=== PATIENT | female | born 1965 | race Caucasian/White ===

== ENCOUNTER 2017-08-07 12:30 | Emergency (ER) | payer SELFPAY | END 2017-08-07 17:21 | disposition home or self-care (01) | LOC: D.ER 12:30 | DX: L02.612 Cutaneous abscess of left foot (principal) ==

== ENCOUNTER → 2017-08-14 17:25 | Emergency (ER) | payer SELFPAY | END | disposition home or self-care (01) | LOC: D.ER 17:25 | DX: S91.312D Laceration without foreign body, left foot, subsequent encounter (principal); X58.XXXD Exposure to other specified factors, subsequent encounter; Y92.029 Unspecified place in mobile home as the place of occurrence of the external cause; Z48.02 Encounter for removal of sutures ==

== ENCOUNTER → 2018-01-12 09:57 | Outpatient (CLI) | payer SELFPAY | END | disposition home or self-care (01) | LOC: D.CT 09:57 | DX: R19.02 Left upper quadrant abdominal swelling, mass and lump (principal) ==

== ENCOUNTER → 2018-09-06 16:03 | Outpatient (CLI) | payer OTHER | END | disposition home or self-care (01) | LOC: D.RAD 16:03 | DX: J01.90 Acute sinusitis, unspecified (principal) ==

== ENCOUNTER → 2018-09-25 15:31 | Outpatient (CLI) | payer OTHER | END | disposition home or self-care (01) | LOC: D.LABREF 15:31 | DX: M17.11 Unilateral primary osteoarthritis, right knee (principal) ==

== ENCOUNTER → 2018-09-26 09:25 | Outpatient (CLI) | payer OTHER ==
[~2018-09-26 09:25] MED LIST: LISINOPRIL2.5 MG PO; METFORMIN HCL500 M1 PO; MOBIC7.5 MG PO; TIROSINT13 MCG PO; ZOCOR20 MG PO; ZOLOFT50 MG PO
== END | disposition home or self-care (01) ==
LOC: D.LABREF 09:25
DX: M17.11 Unilateral primary osteoarthritis, right knee (principal); Z11.8 Encounter for screening for other infectious and parasitic diseases

== ENCOUNTER 2018-10-11 10:00 | Inpatient (IN) | payer OTHER ==
[~2018-10-11] VITALS: Ht 157.5 cm; Wt 90.7 kg
[2018-10-11 12:15] LABS: BASOPHILS 0.5 % (0-2); HEMATOCRIT 41.3 % (36.0-48.0); HEMOGLOBIN 14.2 g/dL (12-16); IMMATURE GRANULOCYTES 0.4 % (0-5); LYMPHOCYTES 29.7 % (15-50); MCH 32.3 pg (26.0-34.0); MCHC 34.4 g/dL (31.0-37.0); MCV 94.1 fL (80.0-100.0); MEAN PLATELET VOLUME 9.3 fL (7.4-10.4); MONOCYTES 6.9 % (2-11); NEUTROPHILS 60.5 % (40-80); PLATELET COUNT 208 10x3/uL (130-400); RBC 4.39 10x6/uL (4.00-5.40); RDW 12.7 % (11.5-14.5); WBC 7.9 10x3/uL (4.8-10.8)
[2018-10-11 12:23] LABS: APTT 28.2 SECONDS (22.8-39.4); INR 1.02 (0.85-1.17); PROTIME 12.9 SECONDS (11.6-15.0)
[2018-10-11 12:24] LABS: CALC OSMOLALITY 279 mosm/kg (275-300); CALCIUM 9.3 mg/dL (8.5-10.1); CARBON DIOXIDE 28.3 mmol/L (21.0-32.0); CHLORIDE - SERUM 102 mmol/L (98-107); CREATININE - SERUM 0.8 mg/dL (0.6-1.3); GLUCOSE 187 mg/dL (74-106); POTASSIUM - SERUM 4.2 mmol/L (3.5-5.1); SODIUM 137 mmol/L (136-145); UREA NITROGEN 16 mg/dL (7-18); eGFR NON AFRICAN AMERICAN 79 mL/min (90-120)
[2018-10-11 12:51] LABS: APPEARANCE CLEAR (CLEAR); BILIRUBIN NEGATIVE (NEGATIVE); COLOR YELLOW (YELLOW); GLUCOSE NEGATIVE (NEGATIVE); KETONE NEGATIVE (NEGATIVE); NITRITE NEGATIVE (NEGATIVE); PROTEIN NEGATIVE (NEGATIVE); SPECIFIC GRAVITY 1.015 (1.005-1.020); UROBILINOGEN NORMAL (NORMAL)
[2018-10-11 12:52] LABS: BACTERIA FEW /hpf (NONE SEEN); EPITHELIAL CELLS 0-5 /hpf (0-5); MUCUS <1+ /lpf (NONE SEEN)
[2018-10-17 08:04] VITALS: BP 116/71; BMI 36.6
[2018-10-17 12:47] VITALS: BP 113/70
[2018-10-17 14:21] VITALS: BMI 36.6
--- NOTE | 2018-10-17 15:51 | OP ---
PATIENT NAME: VERONICA IBARRA MEDICAL RECORD: [id number] :65 LOCATION:D.[id number] ADMISSION DATE:10/17/18 SURGEON: RYAN RAM DO DATE OF OPERATION: 10/17/2018 PRIMARY CARE: Aria Armstrong PROCEDURE PERFORMED: Right total knee arthroplasty using the Biomet Vanguard knee 62.5 right porous femur, 71 cruciate tibia, 31 three-peg thin patella, and a 12 E poly anterior stabilized bearing. PREOPERATIVE DIAGNOSIS: Right knee end-stage osteoarthritis. POSTOPERATIVE DIAGNOSIS: Right knee end-stage osteoarthritis. INDICATIONS: Ms. Ibarra is a 53-year-old female, who presented to my office sometime ago. She had tried all conservative measures of treating her osteoarthritis including injections and exercise, weight loss to no avail. She was tired of dealing with the pain and was affecting her activities of daily living and she wanted to have something done. I informed her of the risks and benefits of a total knee including infection, bleeding, damage to nerve and vessel, need for the surgery, revision surgery. She was okay with those risks, blood clots and even and signed the consent. SURGEON: Ryan Ram DO DESCRIPTION OF PROCEDURE: The patient was given a block by anesthesia in the preoperative area and taken to the operative suite, laid in the supine position. The right lower extremity was prepped and draped in sterile fashion. She was given 2 grams of Ancef and 80 mg of gentamicin preoperatively and then a time-out was performed. Everyone was agreement with the correct side, site, patient and procedure. The right lower extremity was then prepped and draped and the incision began over the midline, first marked out and then covered with an Ioban. A #10 blade scalpel was used to make the anterior midline incision. Careful dissection was made down to the capsule coagulating all vessels with the Aquamantys and a medial parapatellar approach was used with a fresh 10 blade through the capsule. The removal of the fat pad was done at that time. Patella was everted and milled down to fit the prosthesis. The knee was then flexed up and the intramedullary canal was entered with a drill and the distal femur guide was cut and the distal femur was cut and then the tibia was measured and cut and then the knee was brought into extension. Lamina filler spreader was used and the menisci were removed and coagulation was done at that time of the medial and lateral genicular arteries with the Aquamantys. The extension block was then brought in and fit well. The knee was then flexed up and the femur was measured to be a 62.5. A 4-in-1 cutting block was then put into place and the femur was cut. The trial was put on and then the patella tray was floated in and ranged and marked the rotation. The patella was then drilled for the implant and then tray and the tibial poly was removed and the lug holes were drilled through the trial of the femur. This was all removed. The knee was thoroughly irrigated. The tibia was then exposed and measured to be 71 tray. This was drilled and punched and extra holes were punched with a special tool and then the cement was mixed and that was put on the tibial implant as well as on the tibia. It was impacted into place. Excess cement was removed with a Chester. The femur was put on, press-fit and impacted into place and a 10 poly was put in between. The knee was brought to an extension and pressure was put on the femur in order to OPERATIVE REPORT [id number] VERONICA IBARRA push the tibial tray down into place while the cement dried. The patella was then exposed, irrigated and cement was put into the tibial peg holes and the screws were used to hold the patella into place and excess cement was removed from it. This was held and the knee was irrigated while the cement dried. Once the cement was dried. I trialed a 10 which seemed to be a little loose and then 12 poly fit very well. I decided to do an anterior stabilized bearing. This was put into place and then locked into place. Had good range of motion and good stability in flexion and extension with medial and lateral stresses. The knee was then thoroughly irrigated and the Surgicel beads were placed into the gutters of the knee as well as the vancomycin and tobramycin powder. Capsule was then closed with #2 Ethibond in tjgges-ef-najaw fashion and then the capsule irrigated, more antibiotic powder was placed on top of it. The skin was closed with 2-0 Vicryl in inverted interrupted fashion and a ZipLine was placed on the knee. Adaptic, 4 x 4s, ABD, Webril, Tomás wrap, and HOMER hose were placed on to the knee, and the patient was awakened and taken to recovery in stable condition. Blood loss approximately 150 mL. COMPLICATIONS: None. TRANSINT:[id number] Voice Confirmation ID: [id number] DOCUMENT ID: [id number] RYAN RAM DO at 1551 CC: ARIA ARMSTRONG [id number] DICTATION DATE: 10/17/18 1201 CANNED FOOD RECONDITIONING INSPECTOR: 10/17/18 1311 ADM IN [place] [address] [place] [address]
[2018-10-17 19:00] VITALS: BP 117/62
[2018-10-18 01:26] VITALS: BP 114/63
[2018-10-18 05:01] VITALS: BP 114/62
[2018-10-18 05:02] LABS: BASOPHILS 0.1 % (0-2); EOSINOPHILS 0 % (0-7); HEMATOCRIT 35.1 % (36.0-48.0); HEMOGLOBIN 11.8 g/dL (12-16); IMMATURE GRANULOCYTES 0.4 % (0-5); LYMPHOCYTES 11.2 % (15-50); MCH 31.9 pg (26.0-34.0); MCHC 33.6 g/dL (31.0-37.0); MCV 94.9 fL (80.0-100.0); MEAN PLATELET VOLUME 9.5 fL (7.4-10.4); MONOCYTES 7.2 % (2-11); NEUTROPHILS 81.1 % (40-80); PLATELET COUNT 228 10x3/uL (130-400); RDW 12.9 % (11.5-14.5); WBC 13.4 10x3/uL (4.8-10.8)
[2018-10-18 05:23] LABS: ALBUMIN 3.2 g/dL (3.4-5.0); ANION GAP 14.2 mmol/L (8-16); BILIRUBIN - TOTAL 0.28 mg/dL (0.2-1.3); CALCIUM 8.5 mg/dL (8.5-10.1); CREATININE - SERUM 0.9 mg/dL (0.6-1.3); POTASSIUM - SERUM 4.2 mmol/L (3.5-5.1); PROTEIN - SERUM 6.7 g/dL (6.4-8.2)
[2018-10-18 08:35] VITALS: BP 102/51
[2018-10-18 12:00] VITALS: BP 104/50
[2018-10-18 13:24] LABS: APPEARANCE SL CLDY (CLEAR); BILIRUBIN NEGATIVE (NEGATIVE); COLOR YELLOW (YELLOW); GLUCOSE 1000 mg/dL (NEGATIVE); KETONE NEGATIVE (NEGATIVE); NITRITE NEGATIVE (NEGATIVE); PROTEIN NEGATIVE (NEGATIVE); SPECIFIC GRAVITY 1.015 (1.005-1.020); UROBILINOGEN NORMAL (NORMAL)
[2018-10-18 14:44] VITALS: Ht 157.5 cm; Wt 90.7 kg
[2018-10-18 16:00] VITALS: BP 110/56
[2018-10-18 21:37] VITALS: BP 108/55
[2018-10-19 01:25] VITALS: BP 123/63
[2018-10-19 04:50] VITALS: BP 120/60
[2018-10-19 06:12] LABS: ALBUMIN 3.1 g/dL (3.4-5.0); ALKALINE PHOSPHATASE 81 U/L (46-116); ALT (SGPT) 51 U/L (10-68); BILIRUBIN - TOTAL 0.61 mg/dL (0.2-1.3); CALC OSMOLALITY 283 mosm/kg (275-300); CALCIUM 8.2 mg/dL (8.5-10.1); CARBON DIOXIDE 31.4 mmol/L (21.0-32.0); CHLORIDE - SERUM 101 mmol/L (98-107); CREATININE - SERUM 0.8 mg/dL (0.6-1.3); POTASSIUM - SERUM 3.9 mmol/L (3.5-5.1); PROTEIN - SERUM 6.3 g/dL (6.4-8.2); SODIUM 140 mmol/L (136-145); UREA NITROGEN 17 mg/dL (7-18); eGFR NON AFRICAN AMERICAN 79 mL/min (90-120)
[2018-10-19 06:15] LABS: HEMATOCRIT 34.7 % (36.0-48.0); LYMPHOCYTES 29.1 % (15-50); MCHC 34.6 g/dL (31.0-37.0); MCV 95.3 fL (80.0-100.0); MEAN PLATELET VOLUME 8.6 fL (7.4-10.4); NEUTROPHILS 58.9 % (40-80); PLATELET COUNT 195 10x3/uL (130-400); RBC 3.64 10x6/uL (4.00-5.40); RDW 12.6 % (11.5-14.5); WBC 9.9 10x3/uL (4.8-10.8)
[2018-10-19 06:21] LABS: GLUCOSE 150 mg/dL (74-106)
[2018-10-19 09:26] VITALS: BP 115/64
--- NOTE | 2018-10-19 12:01 | MORECARE ---
CASE MANAGEMENT DISCHARGE SUMMARY PATIENT: VERONICA BENTON UNIT: [id number] ADM DATE: 10/17/18 AGE: 53 : 65 SEX: F ROOM/BED: D.2215 AUTHOR: JUSTINE BOURNE PHYSICIAN: REFERRING PHYSICIAN: ARNOLD RAM DO DATE OF SERVICE: 10/19/18 Discharge Plan Patient Name: VERONICA BENTON [facility] [facility] 1965 Planned Disposition: Home Anticipated Discharge Date: Discharge Date: Expected LOS: Initial Reviewer: [email or web address] Initial Review Date: 10/17/2018 Generated: 10/19/18 1:01 pm DCPIA - Discharge Planning Initial Assessment Updated by [email or web address]: Shira Rutherford on 10/19/18 11:58 am * Is the patient Alert and Oriented? Yes * How many steps to enter\exit or inside your home? * PCP KOBI CHENG * Pharmacy [facility] [address] * Preadmission Environment Home with Family * ADLs Independent * Equipment Bedside Commode Elevated Toliet Seat Glucometer Rolling Walker * Other Equipment CPM ICE MACHINE * List name and contact numbers for known caregivers / representatives who currently or will assist patient after discharge: LESLIE (SON) JOANA ([phone]) * Verbal permission to speak to the caregivers and representatives has been obtained from the patient. N/A * Community resources currently utilized None * Additional services required to return to the preadmission environment? Yes * Can the patient safely return to the preadmission environment? Yes * Has this patient been hospitalized within the prior 30 days at any hospital? No Patient Name: VERONICA BENTON Page [id number] at 1201 All edits/amendments must be made on the electronic document DICTATION DATE: 10/19/18 1200 J2EE SOFTWARE ENGINEER: CAPO 10/19/18 1200 RPT#: [id number] DC DATE: STATUS: ADM IN [facility] [address] [place] [address] END OF REPORT
--- NOTE | 2018-10-19 12:08 | MORECARE ---
CASE MANAGEMENT DISCHARGE SUMMARY PATIENT: VERONICA BENTON UNIT: [id number] ADM DATE: 10/17/18 AGE: 53 : 65 SEX: F ROOM/BED: D.2215 AUTHOR: TAYLADOC PHYSICIAN: REFERRING PHYSICIAN: ARNOLD RAM DO DATE OF SERVICE: 10/19/18 Discharge Plan Patient Name: VERONICA BENTON Facility: [facility]:[place] : 1965 Planned Disposition: Home Anticipated Discharge Date: Discharge Date: Expected LOS: Initial Reviewer: [email or web address] Initial Review Date: 10/17/2018 Generated: 10/19/18 1:08 pm Comments DCP- Discharge Planning Updated by [email or web address]: Shira Rutherford on 10/19/18 11:[address] Patient Name: VERONICA BENTON Admission Status: Elective Accout number: [id number] Admission Date: 10-17-2018 : 1965 Admission Diagnosis: Attending: ARNOLD RAM Current LOS: 2 Anticipated DC Date: Planned Disposition: Home Primary Insurance: [employer] POS Discharge Planning Comments: CM met with patient to assess discharge planning needs. Patient lives at home with her son and daughter in law and plans to return there at discharge. Her son, Dre will be the regional owner operator truck driver home. She would like to do OP PT @ [facility]. I will set that up for her prior to discharge. She has a walker, BSC, glucometer, ice machine and cpm at her home. There are no steps or stairs to her home and she feels safe to return there. CM will continue to follow and assist with dc planning needs. Supervisor Nurse: Shira Rutherford DCPIA - Discharge Planning Initial Assessment Updated by [id number]: Shira Rutherford on 10/19/18 11:58 am * Is the patient Alert and Oriented? Yes * How many steps to enter\exit or inside your home? * PCP KOBI CHENG * Pharmacy [facility] [address] * Preadmission Environment Home with Family * ADLs Independent * Equipment Bedside Commode Elevated Toliet Seat Glucometer Rolling Walker * Other Equipment CPM ICE MACHINE * List name and contact numbers for known caregivers / representatives who currently or will assist patient after discharge: DRE (SON) JOANA ([phone]) * Verbal permission to speak to the caregivers and representatives has been obtained from the patient. N/A * Community resources currently utilized None * Additional services required to return to the preadmission environment? Yes * Can the patient safely return to the preadmission environment? Yes * Has this patient been hospitalized within the prior 30 days at any hospital? No Last DP export: 10/19/18 11:01 a Patient Name: VERONICA BENTON Page [id number] at 1208 All edits/amendments must be made on the electronic document DICTATION DATE: 10/19/181207 DEVULCANIZER HEAD: CAPO 10/19/181207 RPT#: [id number] DC DATE: STATUS: ADM IN [facility] [address] [place] [address] END OF REPORT
--- NOTE | 2018-10-19 12:17 | MORECARE ---
CASE MANAGEMENT DISCHARGE SUMMARY PATIENT: VERONICA BENTON UNIT: [id number] ADM DATE: 10/17/18 AGE: 53 : 65 SEX: F ROOM/BED: D.2215 AUTHOR: JUSTINE BOURNE PHYSICIAN: REFERRING PHYSICIAN: ARNOLD RAM DO DATE OF SERVICE: 10/19/18 Discharge Plan Patient Name: VERONICA BENTON Facility: [facility]:[place] : 1965 Planned Disposition: Home Anticipated Discharge Date: Discharge Date: Expected LOS: Initial Reviewer: [email or web address] Initial Review Date: 10/17/2018 Generated: 10/19/18 1:17 pm Comments DCP- Discharge Planning Updated by [email or web address]: Shira Rutherford on 10/19/18 11:[address] I SET UP OP PT AT [facility] FOR TuesdayOct @11:00 DCP- Discharge Planning Updated by [email or web address]: Shira Rutherford on 10/19/18 11:[address] Patient Name: VERONICA BENTON Admission Status: Elective Accout number: [id number] Admission Date: 10-17-2018 : 1965 Admission Diagnosis: Attending: ARNOLD RAM Current LOS: 2 Anticipated DC Date: Planned Disposition: Home Primary Insurance[facility] Discharge Planning Comments: CM met with patient to assess discharge planning needs. Patient lives at home with her son and daughter in law and plans to return there at discharge. Her son, Dre will be the rolloff driver home. She would like to do OP PT @ [facility]. I will set that up for her prior to discharge. She has a walker, BSC, glucometer, ice machine and cpm at her home. There are no steps or stairs to her home and she feels safe to return there. CM will continue to follow and assist with dc planning needs. Dyno Technician: Shira Rutherford DCPIA - Discharge Planning Initial Assessment Updated by [email or web address]: Shira Rutherford on 10/19/18 11:58 am * Is the patient Alert and Oriented? Yes * How many steps to enter\exit or inside your home? * PCP KOBI CHENG * Pharmacy [facility] [address] * Preadmission Environment Home with Family * ADLs Independent * Equipment Bedside Commode Elevated Toliet Seat Glucometer Rolling Walker * Other Equipment CPM ICE MACHINE * List name and contact numbers for known caregivers / representatives who currently or will assist patient after discharge: DRE (SON) JOANA ([phone]) * Verbal permission to speak to the caregivers and representatives has been obtained from the patient. N/A * Community resources currently utilized None * Additional services required to return to the preadmission environment? Yes * Can the patient safely return to the preadmission environment? Yes * Has this patient been hospitalized within the prior 30 days at any hospital? No Last DP export: 10/19/18 11:08 a Patient Name: VERONICA BENTON Page 42136 at 1217 All edits/amendments must be made on the electronic document DICTATION DATE: 10/19/181216 MANAGER UI: CAPO 10/19/187 RPT#: [id number] DC DATE: STATUS: ADM IN [facility] [address] [place] [address] END OF REPORT
[2018-10-19] MEDS ORDERED: ASPIRIN81 MG PO (12:40)
[2018-10-19] MEDS ORDERED: OXYCODONE HCL5 M1 PO (12:41)
[2018-10-19] MEDS ORDERED: VISTARIL50 MG PO (12:41)
[2018-10-19] MEDS ORDERED: KEFLEX500 MG PO (12:41)
[2018-10-19 14:04] VITALS: BP 136/72
--- NOTE | 2018-10-19 14:44 | MORECARE ---
CASE MANAGEMENT DISCHARGE SUMMARY PATIENT: VERONICA BENTON UNIT: [id number] ADM DATE: 10/17/18 AGE: 53 : 65 SEX: F ROOM/BED: D.2215 AUTHOR: JUSTINE BOURNE PHYSICIAN: REFERRING PHYSICIAN: ARNOLD RAM DO DATE OF SERVICE: 10/19/18 Discharge Plan Patient Name: VERONICA BENTON Facility: [facility]:[place] : 1965 Planned Disposition: Home Anticipated Discharge Date: Discharge Date: Expected LOS: Initial Reviewer: [email or web address] Initial Review Date: 10/17/2018 Generated: 10/19/18 3:44 pm Comments DCP- Discharge Planning Updated by [email or web address]: Shira Rutherford on 10/19/18 1:[address] PATIENT IS DISCHARGING HOME TODAY DCP- Discharge Planning Updated by [email or web address]: Shira Rutherford on 10/19/18 11:[address] I SET UP OP PT AT [facility] FOR TuesdayOct @11:00 DCP- Discharge Planning Updated by [email or web address]: Shira Rutherford on 10/19/18 11:[address] Patient Name: VERONICA BENTON Admission Status: Elective Accout number: [id number] Admission Date: 10-17-2018 : 1965 Admission Diagnosis: Attending: ARNOLD RAM Current LOS: 2 Anticipated DC Date: Planned Disposition: Home Primary Insurance: [facility] POS Discharge Planning Comments: CM met with patient to assess discharge planning needs. Patient lives at home with her son and daughter in law and plans to return there at discharge. Her son, Dre will be the short haul driver home. She would like to do OP PT @ [facility]. I will set that up for her prior to discharge. She has a walker, BSC, glucometer, ice machine and cpm at her home. There are no steps or stairs to her home and she feels safe to return there. CM will continue to follow and assist with dc planning needs. Multimedia Technician: Shira Rutherford DCPIA - Discharge Planning Initial Assessment Updated by [email or web address]: hSira Rutherford on 10/19/18 11:58 am * Is the patient Alert and Oriented? Yes * How many steps to enter\exit or inside your home? * PCP KOBI CHENG * Pharmacy [facility] [address] * Preadmission Environment Home with Family * ADLs Independent * Equipment Bedside Commode Elevated Toliet Seat Glucometer Rolling Walker * Other Equipment CPM ICE MACHINE * List name and contact numbers for known caregivers / representatives who currently or will assist patient after discharge: DRE (SON) JOANA ([phone]) * Verbal permission to speak to the caregivers and representatives has been obtained from the patient. N/A * Community resources currently utilized None * Additional services required to return to the preadmission environment? Yes * Can the patient safely return to the preadmission environment? Yes * Has this patient been hospitalized within the prior 30 days at any hospital? No Last DP export: 10/19/18 11:17 a Patient Name: VERONICA BENTON Page 98114 at 1444 All edits/amendments must be made on the electronic document DICTATION DATE: 10/19/181442 WING COMMANDER: CAPO 10/19/181442 RPT#: [id number] DC DATE: STATUS: ADM IN [facility] [address] [place] [address] END OF REPORT
== END 2018-10-19 15:38 | disposition home or self-care (01) | DRG 470 ==
LOC: D.SDCHOLD 10-17 07:30 → D.MS 10-17 08:42 → D.SDCHOLD 10-17 09:00 → D.MS 10-17 12:29
PROVIDERS: Emergency Medicine; ADMIT Orthopaedic Surgery
PROC: 0SRC0JZ Replacement of Right Knee Joint with Synthetic Substitute, Open Approach (ICD-10-PCS; principal; 2018-10-17 09:00)
DX: M17.11 Unilateral primary osteoarthritis, right knee (principal); D62 Acute posthemorrhagic anemia; E11.9 Type 2 diabetes mellitus without complications; I10 Essential (primary) hypertension

== ENCOUNTER → 2019-10-07 | Emergency (ER) | payer MEDICAID ==
[~2019-10-07] VITALS: Ht 157.5 cm; Wt 85.3 kg
[~2019-10-07] MED LIST changes: +ASPIRIN81 MG PO; +KEFLEX500 MG PO; +OXYCODONE HCL5 M1 PO; +SILVADENE20 GM TP; +VISTARIL50 MG PO; +VOLTAREN75 MG PO
[2019-10-07 20:46] VITALS: Ht 157.5 cm; Wt 85.3 kg
[2019-10-07 22:03] VITALS: BP 140/82
== END | disposition home or self-care (01) ==
LOC: D.ER 20:41
DX: T23.001A Burn of unspecified degree of right hand, unspecified site, initial encounter (principal); X15.3XXA Contact with hot saucepan or skillet, initial encounter; Y93.9 Activity, unspecified; Y92.9 Unspecified place or not applicable; E11.9 Type 2 diabetes mellitus without complications; I10 Essential (primary) hypertension; Z79.84 Long term (current) use of oral hypoglycemic drugs; E07.9 Disorder of thyroid, unspecified

== ENCOUNTER → 2019-10-19 13:47 | Outpatient (CLI) | payer OTHER ==
[2019-10-07 20:46] VITALS: BMI 36.6
[2019-10-19 14:37] LABS: BASOPHILS 0.5 % (0-2); HEMATOCRIT 39.3 % (36.0-48.0); HEMOGLOBIN 13.7 g/dL (12-16); IMMATURE GRANULOCYTES 0.2 % (0-5); LYMPHOCYTES 32.8 % (15-50); MCHC 34.9 g/dL (31.0-37.0); MCV 94.7 fL (80.0-100.0); MEAN PLATELET VOLUME 9.9 fL (7.4-10.4); MONOCYTES 7.2 % (2-11); NEUTROPHILS 57.3 % (40-80); PLATELET COUNT 192 10x3/uL (130-400); RBC 4.15 10x6/uL (4.00-5.40); RDW 12.6 % (11.5-14.5); WBC 6.6 10x3/uL (4.8-10.8)
[2019-10-19 15:52] LABS: ERYTHROCYTE SEDIMENTATION RATE 44 mm/hr (0-30)
== END | disposition home or self-care (01) ==
LOC: D.LABREF 13:47
PROVIDERS: ATTEND Nurse Practitioner Family
DX: M25.461 Effusion, right knee (principal); Z98.890 Other specified postprocedural states

== ENCOUNTER → 2020-02-19 20:58 | Outpatient (CLI) | payer OTHER ==
[2019-10-07 20:46] VITALS: BMI 36.6
== END | disposition home or self-care (01) ==
LOC: D.MAMMO 02-07 09:30
PROVIDERS: ATTEND Family Medicine
DX: Z12.31 Encounter for screening mammogram for malignant neoplasm of breast (principal)

== ENCOUNTER → 2020-04-25 03:15 | Outpatient (CLI) | payer OTHER ==
[2019-10-07 20:46] VITALS: BMI 36.6
[2020-04-25 03:55] LABS: LYMPHOCYTES 36.9 % (15-50); MCH 31.9 pg (26.0-34.0); MCHC 34.1 g/dL (31.0-37.0); MCV 93.4 fL (80.0-100.0); MEAN PLATELET VOLUME 9.8 fL (7.4-10.4); NEUTROPHILS 60.7 % (40-80); PLATELET COUNT 215 10x3/uL (130-400); RBC 4.39 10x6/uL (4.00-5.40); RDW 13.2 % (11.5-14.5); WBC 6.9 10x3/uL (4.8-10.8)
[2020-04-25 04:55] LABS: ERYTHROCYTE SEDIMENTATION RATE 40 mm/hr (0-30)
== END | disposition home or self-care (01) ==
LOC: D.LABREF 03:15
PROVIDERS: ATTEND Orthopaedic Surgery
DX: M25.569 Pain in unspecified knee (principal)

== ENCOUNTER → 2020-05-09 08:47 | Outpatient (CLI) | payer OTHER ==
[2019-10-07 20:46] VITALS: BMI 36.6
== END | disposition home or self-care (01) ==
LOC: D.NM 08:47
PROVIDERS: ATTEND Orthopaedic Surgery
DX: M17.11 Unilateral primary osteoarthritis, right knee (principal)

== ENCOUNTER → 2020-05-26 20:04 | Outpatient (CLI) | payer OTHER ==
[2019-10-07 20:46] VITALS: BMI 36.6
== END | disposition home or self-care (01) ==
LOC: D.LABREF 20:04
PROVIDERS: ATTEND Orthopaedic Surgery
DX: M25.561 Pain in right knee (principal)

== ENCOUNTER 2020-06-13 06:40 | Day surgery (SDC) | payer OTHER ==
[2020-06-11 11:28] LABS: CALC OSMOLALITY 280 mosm/kg (275-300); CALCIUM 8.6 mg/dL (8.5-10.1); CARBON DIOXIDE 26.2 mmol/L (21.0-32.0); CHLORIDE - SERUM 103 mmol/L (98-107); CREATININE - SERUM 0.7 mg/dL (0.6-1.3); POTASSIUM - SERUM 4.3 mmol/L (3.5-5.1); SODIUM 138 mmol/L (136-145); UREA NITROGEN 10 mg/dL (7-18); eGFR NON AFRICAN AMERICAN > 90 mL/min (90-120)
[2020-06-11 11:29] LABS: GLUCOSE 209 mg/dL (74-106)
[2020-06-11 11:38] LABS: HEMATOCRIT 42.5 % (36.0-48.0); HEMOGLOBIN 14.4 g/dL (12-16); MCHC 33.9 g/dL (31.0-37.0); MCV 94.4 fL (80.0-100.0); MEAN PLATELET VOLUME 9.3 fL (7.4-10.4); RBC 4.5 10x6/uL (4.00-5.40); RDW 12.6 % (11.5-14.5); WBC 5.9 10x3/uL (4.8-10.8)
[~2020-06-13] VITALS: Ht 157.5 cm; Wt 90.7 kg
[~2020-06-13 06:40] MED LIST changes: +FARXIGA TAB 5MG PO; +LIPITOR40 MG PO
[2020-06-13 07:24] VITALS: BP 104/67; Ht 157.5 cm; Wt 90.7 kg
--- NOTE | 2020-06-13 17:26 | OP ---
PATIENT NAME: VERONICA IBARRA MEDICAL RECORD: [id number] :65 LOCATION:D.OPS ADMISSION DATE: SURGEON: RYAN RAM DO DATE OF OPERATION: 06/13/2020 PROCEDURE PERFORMED: Left endoscopic carpal tunnel release. PREOPERATIVE DIAGNOSIS: Carpal tunnel syndrome. POSTOPERATIVE DIAGNOSIS: Carpal tunnel syndrome. INDICATIONS: Ms. Ibarra is a 54-year-old female who has had left carpal tunnel symptoms for quite some time. She had a nerve conduction study showing she had carpal tunnel syndrome. I informed her that we could release this endoscopically and she was okay with that as were the risks including infection, bleeding, damage to the median nerve, vessels and other structures in the area. She wanted it done and she signed the consent. SURGEON: Ryan Ram DO DESCRIPTION OF PROCEDURE: The patient was taken to operative suite and laid in supine position, given 2 grams of Ancef. She was sedated and LMA was placed. The left upper extremity was then prepped and draped in sterile fashion. Timeout was performed and everyone was in agreeance with the correct side, site, patient and procedure. I then made an incision over the volar wrist, centered over the palmaris longus tendon. Made blunt dissection with Ragnell down to the median nerve. I released the fascia from proximal to distal through the incision. We then inflated the tourniquet to 250 mmHg and it was up for 4 minutes. I then entered the carpal tunnel with the dilators and then the sheath, and then the scope entered in, I had a nice view of the transverse carpal ligament. I rasped and probed it to ensure there was no transligamentous nerve. I then brought in the blade, raised it up and transected the transverse carpal ligament and fat herniated down into the carpal tunnel. I then removed all the instruments and used a Ragnell and scissors to ensure there was no remaining fibers of it. There was a good release. I then injected the site with 0.25% Marcaine with epinephrine. Tourniquet was let down, and Adam Karimi, certified surgical technical assistance consultant closed with 5-0 Monocryl in inverted interrupted fashion. Steri-Strips, Adaptic, 4 x 4's, Kerlix, and a Coban was lightly wrapped on it wrist. She was awakened and taken to recovery in stable condition. BLOOD LOSS: Minimal. COMPLICATIONS: None. TRANSINT:[id number] Voice Confirmation ID: [id number] DOCUMENT ID: [id number] OPERATIVE REPORT [id number] VERONICA IBARRA MICHAEL D, DO at 1726 CC: [id number] DICTATION DATE: 06/13/20 0938 SECOND OPERATOR: 06/13/20 1718 [facility] 06/13/[address] [address]
== END 2020-06-13 10:45 | disposition home or self-care (01) ==
LOC: D.OPS 06:40 → D.PAN 12:00 → D.OPS 12:00
PROVIDERS: Anesthesiology; ATTEND Orthopaedic Surgery
DX: G56.02 Carpal tunnel syndrome, left upper limb (principal); E11.9 Type 2 diabetes mellitus without complications; E78.00 Pure hypercholesterolemia, unspecified; M25.561 Pain in right knee

== ENCOUNTER 2021-03-17 08:30 | Day surgery (SDC) | payer OTHER ==
[~2021-03-17] VITALS: Ht 157.5 cm; Wt 90.7 kg
[~2021-03-17 08:30] MED LIST changes: +ALBUTEROL SULF8.5 GM INH; +GLIPIZIDE5 MG PO; +HYDROCODON-ACE1 EA10 PO; +LEXAPRO10 MG PO; +MELOXICAM TAB 15M PO; +NEURONTIN 300300 MG PO; +VITAMIN D21250 MC1 PO
[2021-03-17 08:52] LABS: CALC OSMOLALITY 284 mosm/kg (275-300); CALCIUM 8.7 mg/dL (8.5-10.1); CARBON DIOXIDE 27.5 mmol/L (21.0-32.0); CHLORIDE - SERUM 104 mmol/L (98-107); CREATININE - SERUM 0.7 mg/dL (0.6-1.3); GLUCOSE 218 mg/dL (74-106); POTASSIUM - SERUM 4.2 mmol/L (3.5-5.1); SODIUM 138 mmol/L (136-145); UREA NITROGEN 18 mg/dL (7-18); eGFR NON AFRICAN AMERICAN > 90 mL/min (90-120)
[2021-03-17 08:59] LABS: BASOPHILS 0.4 % (0-2); EOSINOPHILS 2.9 % (0-7); HEMATOCRIT 41.6 % (36.0-48.0); LYMPHOCYTES 30.4 % (15-50); MCHC 33.7 g/dL (31.0-37.0); MEAN PLATELET VOLUME 7.5 fL (7.4-10.4); MONOCYTES 7.8 % (2-11); NEUTROPHILS 58.5 % (40-80); RBC 4.52 10x6/uL (4.00-5.40); RDW 13.2 % (11.5-14.5); WBC 6.3 10x3/uL (4.8-10.8)
[2021-03-17 09:26] LABS: PLATELET COUNT 213 10x3/uL (130-400)
[2021-03-17 11:10] VITALS: BP 113/69; Ht 157.5 cm; Wt 90.7 kg
--- NOTE | 2021-03-17 13:44 | NUR ---
1340 ICE CAP TO HAND. PT. AWAKE/ALERT, O2 DC'D. 97%
--- NOTE | 2021-03-18 06:00 | OP ---
PATIENT NAME: VERONICA BENTON MEDICAL RECORD: [id number] :65 LOCATION:[place] ADMISSION DATE: SURGEON: RYAN RAM DO DATE OF OPERATION: 03/17/2021 PROCEDURE PERFORMED: Left middle finger trigger release, A1 aidan release. PREOPERATIVE DIAGNOSIS: Left middle finger trigger finger. POSTOPERATIVE DIAGNOSIS: Left middle finger trigger finger. INDICATIONS: The patient is a 55-year-old female who has had left middle finger pain for quite some time. She notes it started to catch on her and pop and lock. I saw her in clinic and she wanted it released. I informed of the risks including infection, bleeding, damage to nerve or vessel in the area continued pain, recurrence and loss of motion of the finger and she signed the consent. SURGEON: Ryan Ram D.O. DESCRIPTION OF PROCEDURE: The patient was taken to the operative suite, laid in supine position, given general anesthetic and LMA was placed. She was given 2 grams of Ancef preoperatively. Left upper extremity was prepped and draped in sterile fashion. Timeout was performed. Everyone was in agreement with the correct side, site, patient, and procedure. Then, exsanguinated left lower extremity with an Esmarch, tourniquet was inflated to 250 mmHg and was up for 4 minutes. I then made an incision over the distal palmar crease, made dissection down with a Ragnell to the A1 aidan and released it and then ensured that the tendon did not stick anymore and then let the tourniquet down and inject the site with 0.25% Marcaine with epinephrine, approximately 8 mL of it and closed the site with 4-0 nylon in a horizontal mattress fashion. She was then dressed with Adaptic, 4 x 4s, Kerlix and Coban lightly wrapped on the hand. She was awakened and taken to recovery room in stable condition. BLOOD LOSS: Minimal. COMPLICATIONS: None. TRANSINT:[id number] Voice Confirmation ID: [id number] DOCUMENT ID: [id number] RYAN RAM DO at 0600 CC: [id number] DICTATION DATE: 03/17/21 1259 INTERVENTION TEACHER: 03/17/21 2215 [facility] 03/17/21 [facility] [address] [place] [address]
== END 2021-03-17 14:30 | disposition home or self-care (01) ==
LOC: D.OPS 08:30
PROVIDERS: Anesthesiology; ATTEND Orthopaedic Surgery
DX: M65.332 Trigger finger, left middle finger (principal); E11.9 Type 2 diabetes mellitus without complications

== ENCOUNTER 2021-03-31 09:48 | Emergency (ER) | payer OTHER ==
[~2021-03-31] VITALS: Ht 157.5 cm; Wt 84.5 kg
[2021-03-31 09:54] VITALS: BP 140/84; Ht 157.5 cm; Wt 84.5 kg
[2021-03-31] MEDS ORDERED: VITAMIN D31250 MCG PO (09:56)
[2021-03-31 10:23] LABS: BASOPHILS 0.5 % (0-2); EOSINOPHILS 0.9 % (0-7); HEMATOCRIT 44.6 % (36.0-48.0); HEMOGLOBIN 15.1 g/dL (12-16); LYMPHOCYTES 13.3 % (15-50); MCH 31.5 pg (26.0-34.0); MCHC 33.8 g/dL (31.0-37.0); MCV 93.2 fL (80.0-100.0); MEAN PLATELET VOLUME 7.7 fL (7.4-10.4); MONOCYTES 5.2 % (2-11); NEUTROPHILS 80.1 % (40-80); PLATELET COUNT 182 10x3/uL (130-400); RBC 4.79 10x6/uL (4.00-5.40); RDW 13.3 % (11.5-14.5); WBC 10.5 10x3/uL (4.8-10.8)
[2021-03-31 10:32] LABS: CALC OSMOLALITY 287 mosm/kg (275-300); CALCIUM 8.6 mg/dL (8.5-10.1); CHLORIDE - SERUM 104 mmol/L (98-107); CREATININE - SERUM 0.7 mg/dL (0.6-1.3); GLUCOSE 238 mg/dL (74-106); POTASSIUM - SERUM 4.2 mmol/L (3.5-5.1); SODIUM 140 mmol/L (136-145); UREA NITROGEN 14 mg/dL (7-18); eGFR NON AFRICAN AMERICAN > 90 mL/min (90-120)
[2021-03-31 10:41] LABS: ALBUMIN 3.8 g/dL (3.4-5.0); ALKALINE PHOSPHATASE 149 U/L (30-120); ALT (SGPT) 48 U/L (10-68); AMYLASE - SERUM 27 U/L (25-115); BILIRUBIN - TOTAL 0.72 mg/dL (0.2-1.3); LIPASE 60 U/L (73-393); PROTEIN - SERUM 7.4 g/dL (6.4-8.2); TROPONIN-I < 0.017 ng/mL (0.000-0.060)
[2021-03-31 11:20] LABS: BILIRUBIN NEGATIVE (NEGATIVE); KETONE NEGATIVE mg/dL (< 1+); NITRITE NEGATIVE (NEGATIVE); PH 6.5 (5.0-8.0); SQUAMOUS EPITHELIAL 1 HPF (0-4); UROBILINOGEN NORMAL mg/dL (< 2); WHITE CELLS - URINE 4 HPF (0-4)
[2021-03-31] MEDS ORDERED: LEVAQUIN750 MG PO (14:25)
[2021-03-31] MEDS ORDERED: FLAGYL500 MG PO (14:25)
[2021-03-31] MEDS ORDERED: PHENERGAN25 M1 PO (14:26)
== END 2021-03-31 15:03 | disposition home or self-care (01) ==
LOC: D.ER 09:48
PROVIDERS: Family Medicine
DX: K52.9 Noninfective gastroenteritis and colitis, unspecified (principal); E11.9 Type 2 diabetes mellitus without complications; E78.5 Hyperlipidemia, unspecified